=== PATIENT | female | born 1975 | race Asian ===

== ENCOUNTER 2017-08-18 12:02 | Emergency (ER) | payer SELFPAY ==
[~2017-08-18] VITALS: Ht 157.5 cm; Wt 81.6 kg
[2017-08-18 12:03] VITALS: Ht 157.5 cm; Wt 81.6 kg
[2017-08-18 17:30] VITALS: BP 125/82
== END 2017-08-18 17:30 | disposition home or self-care (01) ==
LOC: ED 12:02
DX: R07.89 Other chest pain (principal); G43.909 Migraine, unspecified, not intractable, without status migrainosus
CPT/HCPCS: 72072